=== PATIENT | male | born 1990 | race Hispanic/Latino ===

== ENCOUNTER 2021-10-23 13:22 | Emergency (ER) | payer OTHER ==
[~2021-10-23] VITALS: Ht 170.2 cm; Wt 112.7 kg
[2021-10-23 13:31] VITALS: BP 133/85
[2021-10-23 14:01] VITALS: BP 125/85
[2021-10-23 14:30] VITALS: BP 127/73
[2021-10-23] MEDS ORDERED: CEPHALEXIN500 MG PO (14:59)
[2021-10-23 15:00] VITALS: BP 119/89
[2021-10-23 15:02] VITALS: BP 119/89
== END 2021-10-23 15:10 | disposition home or self-care (01) | DRG 125 ==
LOC: ED 13:22
PROC: 0HQ1XZZ Repair Face Skin, External Approach (ICD-10-PCS; principal; 2021-10-23)
DX: S01.111A Laceration without foreign body of right eyelid and periocular area, initial encounter (principal); W22.8XXA Striking against or struck by other objects, initial encounter; Y93.89 Activity, other specified; Y92.89 Other specified places as the place of occurrence of the external cause; Y99.0 Civilian activity done for income or pay

== ENCOUNTER 2021-10-31 20:32 | Emergency (ER) | payer OTHER ==
[~2021-10-31] VITALS: Ht 170.2 cm; Wt 120.0 kg
[~2021-10-31 20:32] MED LIST: CEPHALEXIN500 MG PO
[2021-10-31 22:03] VITALS: BP 131/71
== END 2021-10-31 22:03 | disposition home or self-care (01) | DRG 951 ==
LOC: ED 20:32
DX: Z48.02 Encounter for removal of sutures (principal)